=== PATIENT | female | born 1980 | race Caucasian/White ===

== ENCOUNTER 2019-10-20 08:05 | Inpatient (IN) | payer MEDICAID, SELFPAY ==
--- NOTE | 2019-10-11 13:00 | ANES.PREANES ---
Pre-Anesthetic Assessment Pre-Anesthetic Assessment: Preop Diagnosis: IUP Proposed Procedure: Operation Date: 10/20/19 08:00 Proposed Procedures p Section Repeat With Tubal(Not Applicable) - Dank Taylor MD Familial anesthetic complications: Difficulty with placement of 2nd spine Was Beta Sidney taken within 24 hours: N/A Social: Social History: No alcohol and No tobacco Exam: Pre-Anes Outpt Exam: alert, oriented x 3, clear to auscultation bilaterally and regular rate & rhythm Airway: Cervical ROM: WNL MP: 2 Additional comments: pulled L upper tooth Pulmonary: Pulmonary: None reported CV/HEM: CV/HEM: None reported : : None reported Hepatic: Hepatic: None reported GI: GI: GERD Metabolic: Metabolic: None reported Musc/skel: Musc/skel: Weakness Neuropsych: Neuropsych: Seizure Comments: 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
[2019-10-20] VITALS (23 sets, daily range): BP systolic 100–140; BP diastolic 55–87; PULSE 58–94; RESP 16–18; TEMP 36.6–36.8; O2SAT 96–100; BMI 26.9
[2019-10-20 05:44] LABS: Basophils % 0.3 %; Eosinophils # 0.3 10^3/uL (0.0-0.8); Eosinophils % 2.4 %; Hemoglobin 12.2 g/dL (11.5-15.3); Mean Corpuscular Hemoglobin 29.3 pg (28.0-34.0); Mean Corpuscular Volume 88.7 fL (81-99); Monocytes % 8.1 %; Neutrophils # 7.3 10^3/uL (1.8-7.7); Neutrophils % 62.3 %; Nucleated Red Blood Cells % 0 %; Platelet Count 180 10^3/cmm (130-400); Red Blood Count 4.17 10^6/uL (4.1-5.3); Red Cell Distribution Width 13.8 % (12.1-15.1); White Blood Count 11.7 10^3/uL (4.0-10.0)
[2019-10-20] MEDS: lactated ringers 1,000 ML 999 ML IV (06:00)
[2019-10-20] MEDS: metoclopramide 5 mg/mL SDV 2 mL 10 MG IVP (06:30)
[2019-10-20] MEDS: citric acid-sodium citrate 30 mL UDC PO (06:30)
[2019-10-20] MEDS: famotidine 20 mg/2 mL INJ IVP (06:31)
--- NOTE | 2019-10-20 06:51 | PM.OBGYHP ---
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 Her has been unremarkable. She is a consistent care. Her labs have been unremarkable. Her blood type is O-. Present Details : 3 Para: 2 Review of Systems General: Reports: 10 or more systems reviewed and unremarkable except in HPI and below Const: Reports: fatigue; Denies: fever Eyes: Denies: change in vision Card: Denies: chest pain Musc: Reports: back pain Skin/Breast: Reports: itching Dread/Lymph: Denies: easy bruising Medications/Allergies Home Medications Medication Instructions Recorded Confirmed Last Taken Type cetirizine [Zyrtec] 10 mg PO DAILY 10/20/19 10/20/19 2 Days Ago History ~10/18/19 famotidine [Pepcid] 20 mg PO BID 10/20/19 10/20/19 1 Day Ago History ~10/19/19 lactobacillus combination no.4 3,000 mmu cells PO DAILY 10/20/19 10/20/19 Unknown History [Probiotic] oxymetazoline [Afrin 1 spray INTRANASAL DIRECTED PRN 10/20/19 10/20/19 Unknown History (oxymetazoline)] no.144-folic acid PO DIRECTED 10/20/19 1 Day Ago History [] ~10/19/19 psyllium husk [Metamucil] 1 tsp PO DAILY 10/20/19 10/20/19 Unknown History Allergies Allergy/AdvReac Type Severity Reaction Status Date / Time No Known Allergies Allergy Verified 10/20/19 06:31 Vitals/I&O/Wt Last Vital Signs Pulse 94 10/20/19 05:15 BP 127/87 10/20/19 05:15 Weight last 48 hrs Weight 172 lb Physical Exam Const: COMMON NORMALS: oriented x3 and alert HENMT: COMMON NORMALS: moist oral mucous membranes HEAD & SCALP: normal to inspection Chest: COMMONS NORMALS: inspection of chest normal Resp: COMMON NORMALS: clear to auscultation bilaterally AUSCULTATION: clear to auscultation bilaterally Cardio: COMMON NORMALS: regular rate and regular rhythm RATE: regular rate RHYTHM: regular rhythm GI: INSPECTION: Yes normal to inspection and Yes other (Gravid -lower transverse incision scar noted) Extremity: COMMON NORMALS: normal to inspection GENERAL: Yes edema (Trace) Neuro: COMMON NORMALS: oriented x3, moves all extremities and no sensory deficits noted SENSORIUM/ORIENTATION: Yes alert Psych: COMMON NORMALS: mental status grossly normal Skin: COMMON NORMALS: no rashes or lesions noted GENERAL SKIN EXAM: no rashes or lesions noted Data : 10/20/19 05:30 A&P Assessment and plan (1) 39 weeks gestation of : Proceed with lower transverse section and bilateral tubal ligation. I discussed the risks with the patient and her including the risks of bleeding, infection, and damage to intra-abdominal organs. We also discussed the risks of a intraoperative bilateral tubal ligation. We discussed the risk of becoming again despite a successful tubal ligation. The acknowledged risks and wished to proceed. Status: Acute Code(s): Z3A.39 - 39 weeks gestation of (2) Previous section: Status: Acute Code(s): Z98.891 - History of uterine scar from previous surgery (3) Sterilization consult: Status: Acute Code(s): Z30.09 - Encounter for other general counseling and advice on contraception (4) Blood type O-: Status: Acute Code(s): Z67.41 - Type O blood, Rh negative Attestations Medical Necessity Statement*: Anticipate routine and post care Coding Level of Care Code Acute Registered Dental Assistant Rda for Chg Fwd Diagnoses 39 weeks gestation of Z3A.39 Previous section Z98.891 Sterilization consult Z30.09 Blood type O- Z67.41
--- NOTE | 2019-10-20 08:31 | ANE.PACU ---
 Inpatient post-anesthesia follow up: Airway intact: Yes Vital signs: Temperature Pulse Rate 81 Respiratory Rate Blood Pressure 140/70 Pulse Oximetry Oxygen Delivery Me thod Room Air Oxygen Flow Rate Fraction of Inspir ed Oxygen Hydration adequate: Yes Nausea and vomiting: No Pain level: 1 Mental status: Baseline
--- NOTE | 2019-10-20 08:40 | PM.OP ---
Operative Report Date of procedure: 10/20/19 Pre-op Diagnosis: IUP, previous lower transverse section, desires sterilization Post-op diagnosis: same Procedure Done: 1. Lower transverse section 2. Intraoperative bilateral tubal ligation using a modified Malorie technique The patient was brought back to the operating room where she was prepped and draped in usual sterile fashion. Anesthesia was found to be adequate. A lower transverse skin incision was then made with a #10 blade. I then dissected down to the underlying subcutaneous tissue until arriving at the prerectal fascia. The fascia was then nicked with the scalpel bilaterally. The fascial incisions were then carried laterally with Siddiqui scissors. Attention was then turned to the superior aspect of the incision which was grasped with kochers and tented up away from the underlying rectus abdominis muscles. The muscles were then dissected away from the fascia manually, and later with Siddiqui scissors. Attention was then turned to the inferior aspect of the incision, and the fascia was dissected away from the underlying muscle in similar fashion. The rectus abdominis muscles were then spread manually. The peritoneum was entered manually. Excellent visualization of the uterus was noted. A lower transverse uterine incision was then made with a #10 blade. Upon arriving at the intrauterine cavity, the uterine incision was then extended manually. The infant was noted to be in vertex position. The baby was delivered without difficulty. After delivery of the head, the mouth and nose were suctioned at the site of the incision. There was no meconium. There was no nuchal cord. The remainder of the body was then delivered and placed on the abdomen. The cord was cut and clamped. The baby was then handed to the waiting nurse. The placenta was removed intact. The uterus was externalized. The intrauterine cavity was cleansed of any remaining debris. The uterine incision was reapproximated in 2 layers. The first layer was performed with 0 Vicryl in a running locked stitch. The second layer was an imbricating stitch also using 0 Vicryl. The uterus was replaced into the abdomen. The peritoneum was then irrigated with warm saline. I reexamined the uterine incision and found it to be hemostatic. Attention was then turned to the right fallopian tube which was ligated cut and cauterized in a modified Franklin fashion using 0 plain gut. Attention was then turned to the left fallopian tube which was also ligated cut and cauterized in similar fashion. The rectus abdominis muscles were then reapproximated using 0 Vicryl in a running stitch. The fascia was then reapproximated using 0 Vicryl in running stitch. The skin was reapproximated using jennifer. A sterile dressing was placed. All counts were correct x2. Both the mother and baby were in stable condition. Specimens removed/disposition: 1. Healthy-appearing female with a weight of 6 pounds 5 ounces and Apgars of 9 and 9 2. Placenta with a three-vessel cord 3. Bilateral fallopian tube segments with the right segment being tagged Pathology: Bilateral fallopian tube segment Surgeon: Dank Taylor Anesthesia: Nerve Block Estimated blood loss (mL): 800 Complications: None Condition: stable
[2019-10-20] MEDS: ondansetron 2 mg/ML SDV 2 mL 4 MG IVP (11:07)
[2019-10-20] MEDS: oxyCODONE-APAP 5-325 mg Tablet PO ×2 (16:35→22:10)
--- NOTE | 2019-10-20 18:10 | PC.NURSE ---
This nurse educated pt on the need to possibly straight catheterizing pt if not meeting the amount of urine every 2 hours.pt refused the straight catheterizing procedure.
[2019-10-20] MEDS: lanolin oint 7 gm 1 APPLIC TOPICAL (22:54)
[2019-10-21] VITALS (9 sets, daily range): BP systolic 105–118; BP diastolic 62–70; PULSE 68–80; RESP 16–18; TEMP 36.4–36.9; O2SAT 98
[2019-10-21] MEDS: oxyCODONE-APAP 5-325 mg Tablet PO ×2 (05:24→12:26)
--- NOTE | 2019-10-21 07:29 | PC.NURSE ---
Patient educated on the importance of not sleeping with baby and protocol that if we see her asleep and holding baby we will need to take baby and place baby in crib.
[2019-10-21] MEDS: ketorolac 30 mg/mL INJ IVP (08:08)
[2019-10-21] MEDS: morphine 4 mg/mL SDV 1 mL IVP (09:39)
--- NOTE | 2019-10-21 18:10 | P.PN_ITS ---
DIESEL ENGINE SPECIALIST Subjective Subjective: Interval history: Overall, the patient has done well. Her urine output has been appropriate. She has had some difficulty with her pain control. She states that this is a problem she had with previous C-sections as well. Her bleeding has been reasonable. She is breast-feeding well. Labor: Amniotic Membrane Status: Intact Monitor Mode: External Contraction Pattern: Absent Status: Category l Vitals/I&O/Wt Last Vital Signs Temp 97.8 F 10/21/19 09:52 Pulse 78 10/21/19 09:52 Resp 18 10/21/19 12:26 BP 109/62 10/21/19 09:52 Pulse Ox 98 10/21/19 03:00 Weight last 48 hrs Weight 172 lb Physical Exam Narrative: EXAM NARRATIVE: The patient is alert. She appears comfortable. Her heart has a regular rate and rhythm with no murmurs appreciated. Lungs are clear to auscultation bilaterally. The incision is clean dry and intact Her fundus is firm and below the umbilicus. Urinary Catheter Management^: Crain: Cath Placed During This Visit: no Data : 10/20/19 05:30 A&P Assessment and plan (1) Status post section: The patient is having an appropriate post course. She is in her diet advanced and is doing well. We are still working on improving her pain control. Status: Acute Code(s): Z98.891 - History of uterine scar from previous surgery Attestations Medical Necessity Statement*: Routine post care. Anticipate the patient will be discharged home tomorrow Coding Level of Care Code Acute Facilities And Grounds Director for Chg Fwd Diagnoses Status post section Z98.891
[2019-10-21] MEDS: oxyCODONE-APAP 10-325 mg Tablet 1 TAB PO ×2 (19:19→23:28)
[2019-10-22 03:40] VITALS: RESP 18
[2019-10-22] MEDS: oxyCODONE-APAP 10-325 mg Tablet 1 TAB PO ×3 (03:40→12:07)
[2019-10-22 04:25] VITALS: BP 118/74; PULSE 73; RESP 18; TEMP 36.4
[2019-10-22 10:00] VITALS: BP 116/70; PULSE 80; RESP 16; TEMP 36.4
--- NOTE | 2019-10-22 10:25 | PM.OBGYDC ---
Discharge Providers SHIPPING AND RECEIVING ASSISTANT Date of Admission: 10/20/19 08:05 Date of Discharge: 10/22/19 Attending Provider at Admission: Dank Taylor MD Attending Provider at Discharge: Dank Taylor MD Diagnoses at Discharge Discharge Diagnosis (1) Status post section: Status: Acute Problem details: And tubal ligation Reason for Visit Reason for Visit: Reason For Visit: Repeat C Section 10/20/19 Hospital Course Hospital Course: The patient presented to the hospital for a scheduled repeat section and a bilateral tubal ligation. The procedure was unremarkable. Her course was also relatively unremarkable. Her bleeding was within normal limits. Her pain was adequately controlled, but we did have to adjust her pain medications multiple times to help give her appropriate pain control. She breast-fed well. She passed gas and advanced her diet. She tolerated her regular diet well. There were no concerns or complications. Information Peripartum Data: Infant Delivery Method: Section Physical Exam Narrative: EXAM NARRATIVE: She is in no acute distress Lungs are clear auscultation bilaterally Her heart has a regular rate and rhythm Her fundus is below the umbilicus and firm Her dressing is clean, dry and intact Her extremities have trace edema Urinary Catheter Management^: Crain: Cath Placed During This Visit: no Discharge Data Data Completed and Pending: On admission the patient's white blood count was 8.7 with a hemoglobin of 13.6 and a platelet count of 202 After her her white blood count was 11.7 with a hemoglobin of 12.2 and a platelet count of 180 Pending at discharge Category Date Time Status Pathology: Surgic al [PTH] Routine Pth 10/20/19 12:14 Received Vitals: Last Vital Signs Temp 97.6 F 10/22/19 04:25 Pulse 73 10/22/19 04:25 Resp 18 10/22/19 04:25 BP 118/74 10/22/19 04:25 Pulse Ox 98 10/21/19 03:00 Discharge Plan Discharge Patient Disposition: Home, Self-Care Condition: Stable Prescriptions: New ibuprofen 800 mg Tablet 800 mg PO Q8H Qty: 45 RF: 0 oxycodone-acetaminophen 10-325 mg Tablet 1 tab PO Q4H Qty: 30 RF: 0 Continued cetirizine [Zyrtec] 10 mg Tablet 10 mg PO DAILY RF: 0 400 mcg Tablet,Chewable PO DIRECTED RF: 0 Metamucil 3.4 gram/5.4 gram Powder 1 tsp PO DAILY RF: 0 Probiotic 3 billion cell Capsule 3,000 mmu cells PO DAILY RF: 0 Discontinued famotidine [Pepcid] 20 mg Tablet 20 mg PO BID RF: 0 oxymetazoline [Afrin (oxymetazoline)] 0.05 % [place],Non-Aerosol 1 spray INTRANASAL DIRECTED PRN (Reason: nasal congestion) RF: 0 Discharge Orders: Discharge Order (Routine); Ordered 10/22/19 Ordered By: Dank Taylor Referrals: Dank Taylor MD [Physician] - 4-7 days (The patient already has an appointment next week. We can keep that appointment, but we will need to schedule the baby's appointment at the same time.) Discharge Diet: Regular Discharge Activity: Limit activity as instructed Discharge Attestations SHIPPING AND RECEIVING ASSISTANT Time Spent in Discharge Care*: less than 30 min Coding Level of Care Code Acute Mannequin Coloring Artist for Chg Fwd Diagnoses Status post section Z98.891
[2019-10-22 12:07] VITALS: RESP 18
[2019-10-22 13:45] VITALS: BP 115/69; PULSE 81; RESP 18; TEMP 36.6
== END 2019-10-22 14:00 | disposition home or self-care (01) | DRG 785 ==
PROVIDERS: Admitting Provider Family Medicine; Visit Provider Family Medicine
PROC: 10D00Z1 Extraction of Products of Conception, Low, Open Approach (ICD-10-PCS; CPT 59514; principal; 2019-10-20 07:00)
DX: O34.211 Maternal care for low transverse scar from previous cesarean delivery (principal); N85.8 Other specified noninflammatory disorders of uterus; Z3A.39 39 weeks gestation of pregnancy; Z37.0 Single live birth; Z30.2 Encounter for sterilization; Z67.41 Type O blood, Rh negative
CPT/HCPCS: 12345; 85025; 88302; 96375; 98960; J0690; J1885; J2270; J2274; J2370; J2405; J2590; J2765; J3490